=== PATIENT | female | born 1980 | race Caucasian/White ===

== ENCOUNTER → 2017-07-28 12:59 | Outpatient (CLI) | payer OTHER, SELFPAY ==
--- NOTE | 2017-07-28 13:20 | US_ITS ---
US OB /maternal detail: INDICATION: ITS.REASON: OB Complete ORDERING PHYSICIAN: Sterling Ackerman MD PATIENT AGE: 37 years TECHNIQUE: ultrasound transabdominal scanning. COMPARISON: Previous ultrasound 05/23/2017. FINDINGS: Single viable intrauterine gestation. Cephalic position in the study.. Fetus turned toward the cephalic position during the course of the scan Placenta: Posterior placenta grade 1.. No previa The cervix appears satisfactory. Closed and measuring over 3 cm in length. Complete survey performed and was unremarkable on the submitted images as in PACS. No discrete anomalies identified on survey imaging by technologist. Active fetus. Three-vessel cord with satisfactory umbilical cord insertion. 4- chamber heart noted. LVOT imaged & cine loop of heart included Survey of brain & ventricles and posterior fossa unremarkable. Face and neck survey unremarkable. Survey of the nasion and orbits unremarkable Diaphragm and chest views unremarkable. Abdomen: Both kidneys noted and unremarkable. Small Bladder imaged Stomach noted and satisfactory. Spine: Survey of the spine satisfactory with no anomalies identified nor imaged. Both arms and legs noted. Appears to be a male fetus Amniotic Fluid: Adequate. Maternal adnexa: No additional findings here encountered Measurements: Average ultrasound age 20 week 1 day. Gestational Age 19 wk 6 day... Based on LMP 03/11/17 Estimated due date by ultrasound age 612/14/2017 Estimated weight 3 19-g +/- 47 grams. BPD = 20 week 3 day OFD = 20 week 6 day HC = 19 week 6 day AC = 19 week 4 day FL = 20 week 2 day Heart Rate = 140 BPM Cerebellum = 20 week 1 day Humerus = 19 week 6 day HC/AC is 1.22 WNL. CI is 77% WNL. FL/BPD is 69%. FL/AC is 23%. IMPRESSION: Single viable intrauterine gestation. Average ultrasound age 20 weeks 1 day. Cephalic position at the end of the study.-Turned during the exam. Posterior placenta no previa. Fetus is active. Anatomical survey unremarkable, normal anatomy observed.
== END ==
LOC: RAD 12:59
PROVIDERS: Family Provider Family Medicine; PCP Family Medicine; Visit Provider Nurse Practitioner Obstetrics & Gynecology
DX: Z36.0 Encounter for antenatal screening for chromosomal anomalies (principal)
CPT/HCPCS: 76811

== ENCOUNTER 2017-08-19 17:13 | Outpatient (CLI) | payer OTHER, SELFPAY ==
--- NOTE | 2017-08-19 | US_ITS ---
US OB >= 14 weeks Fetus, US OB transvaginal: INDICATION: bright red Spotting with cramping pain ITS.REASON: CHECK FOR PLACENTA PREVIA ORDERING PHYSICIAN: Bruce Gonsalez MD PATIENT AGE: 37 years TECHNIQUE: ultrasound transabdominal and transvaginal scanning. FINDINGS: There is a single live fetus present in the cephalic presentation. The placenta is posterior in implantation with an anterior accessory lobe. heart tones are present at 1 32 bpm. Transvaginal images show no evidence of placenta previa. The cervix is closed measuring 3 cm. Biometric measurements were not obtained.. IMPRESSION: Live IUP in cephalic presentation. No evidence of placenta previa
[2017-08-19 17:47] VITALS: BP 127/75; PULSE 77; RESP 16; TEMP 36.7; O2SAT 99; BMI 40.1
[2017-08-19 18:05] LABS: Microscopic, Urine URINE MICROSCOPIC (MICROSCOPIC)
[2017-08-19 18:10] LABS: Appearance,Urine CLEAR (Clear); Bilirubin,Urine Negative (Negative); Blood, Urine Negative (Negative); Color,Urine YELLOW (Yellow); Glucose,Urine (UA) Negative (Negative); Ketones,Urine Negative (Negative); Leukocyte Esterase,Urine Negative (Negative); Nitrate,Urine Negative (Negative); Protein,Urine Negative (Negative); Urobilinogen,Urine 0.2 EU/dl (0.2)
[2017-08-19 19:07] LABS: Bacteria,Urine 1+ /lpf; RBC,Urine Occasional #/hpf (0-3); WBC,Urine Occasional #/hpf (0-3)
== END 2017-08-19 19:16 | disposition home or self-care (01) ==
LOC: OBOUT 17:18 → OB 17:20
PROVIDERS: PCP Nurse Practitioner Obstetrics & Gynecology; Visit Provider Obstetrics & Gynecology
DX: O26.852 Spotting complicating pregnancy, second trimester (principal); Z3A.23 23 weeks gestation of pregnancy
CPT/HCPCS: 59025; 76805; 76830; 81001

== ENCOUNTER → 2017-11-18 18:35 | Outpatient (REF) | payer OTHER, SELFPAY | LOC: LAB 18:35 | PROVIDERS: Visit Provider Nurse Practitioner Obstetrics & Gynecology | DX: Z34.90 Encounter for supervision of normal pregnancy, unspecified, unspecified trimester (principal) | CPT/HCPCS: 86403 ==

== ENCOUNTER 2017-11-21 03:56 | Outpatient (CLI) | payer OTHER, SELFPAY ==
--- NOTE | 2017-11-21 | US_ITS ---
US OB biophysical profile, US OB follow up, US SD Ratio umbilcal artery: Indication: ITS.REASON: 36 3/7 week labor. Contractions. ORDERING PHYSICIAN: Bruce Gonsalez MD PATIENT AGE: 37 years FINDINGS:. Single viable intrauterine gestation. Cephalic position.. Placenta: Posterior lateral extending to the fundus. No previa. Some early basal calcifications. 1. There is average amount fluid. The cervix appears satisfactory. Closed and measuring~ 3 cm in length. But becoming difficult to visualize with low-lying head Complete survey performed and was unremarkable on the submitted images as in PACS. No discrete anomalies identified on survey imaging by technologist. Active fetus.Three-vessel cord with satisfactory umbilical cord insertion. Survey of brain & ventricles. In posterior fossa unremarkable Face and neck survey unremarkable. Nasion intact Diaphragm and chest views unremarkable. 4- chamber heart imaged. Cine loop included. LVOT imaged Abdomen: Both kidneys noted and unremarkable. Stomach noted and satisfactory. Spine: Survey of the spine satisfactory with no anomalies identified nor imaged. Both arms and legs noted. Amniotic Fluid: Adequate. Maternal adnexa: No significant findings encountered. MEASUREMENTS: AVERAGE ULTRASOUND AGE = 37w1d. Estimated due date by ultrasound is Due 12/11/2017. Estimated weight is 2979g ( Gestational age 36 weeks 3 days based on LMP 03/11/2017) BPD: 38w1d OFD: 11.58 cm HC: 37w5d AC: 36w4d FL: 35w6d heart rate: 142 bpm. HC/AC: 1.02 (0.93-1.11) Cephalic index: 81% (70-86%) FL/BPD: 75% (71-87%) FL/AC: F21%(20-24%)C Amniotic fluid index: AFIi equal 11.66 . The largest pocket MO fluid measuring 4.2 cm at the right lower quadrant BIOPHYSICAL PROFILE breathing and movement clearly evident. 8 of possible 8 points with scoring as follows: Qualitative AFV: 2 breathing movements: 2 Gross body movements: 2 Tone: 2 Biophysical profile score: 8/8 Doppler evaluation of the umbilical artery: SD RATIO: 2.3 Resistive index: 0.56 No obvious anomalies evident. Placenta: LAT Posterior extending to the fundus Cervix: Appears closed and measures Measurement 3 cm ----IMPRESSION:------- Single viable intrauterine gestation in cephalic presentation. Average ultrasound age 37 weeks 1 day ... Anatomical survey of unremarkable & WNL . Placenta posterior lateral extends to the fundus. Biophysical profile = 8 of possible 8 points ENEIDA = 11.66 SD ratio = 2.3.
[2017-11-21 04:12] VITALS: BMI 39.6
[2017-11-21 04:14] VITALS: BP 108/68; PULSE 77; RESP 20; TEMP 36.7; O2SAT 97; BMI 39.6
[2017-11-21 04:57] LABS: Microscopic, Urine URINE MICROSCOPIC (MICROSCOPIC)
[2017-11-21 05:07] LABS: Appearance,Urine CLEAR (Clear); Bilirubin,Urine Negative (Negative); Blood, Urine Negative (Negative); Color,Urine YELLOW (Yellow); Glucose,Urine (UA) Negative (Negative); Ketones,Urine Negative (Negative); Leukocyte Esterase,Urine Negative (Negative); Nitrate,Urine Negative (Negative); Protein,Urine Negative (Negative); Urobilinogen,Urine 0.2 EU/dl (0.2)
[2017-11-21 05:21] LABS: Bacteria,Urine 1+ /lpf; RBC,Urine Occasional #/hpf (0-3)
== END 2017-11-21 09:25 | disposition hospice, home (50) ==
LOC: OBOUT 03:59 → OB 04:05
PROVIDERS: PCP Nurse Practitioner Obstetrics & Gynecology; Visit Provider Obstetrics & Gynecology
DX: O60.03 Preterm labor without delivery, third trimester (principal); Z3A.36 36 weeks gestation of pregnancy
CPT/HCPCS: 59025; 76816; 76819; 76820; 81001; 96360; 96372

== ENCOUNTER 2017-11-22 12:29 | Outpatient (CLI) | payer OTHER, SELFPAY ==
[2017-11-22 12:45] VITALS: BMI 40.0
[2017-11-22 12:56] LABS: Microscopic, Urine URINE MICROSCOPIC (MICROSCOPIC)
[2017-11-22 12:57] LABS: Appearance,Urine CLEAR (Clear); Bilirubin,Urine Negative (Negative); Blood, Urine Negative (Negative); Color,Urine YELLOW (Yellow); Glucose,Urine (UA) Negative (Negative); Ketones,Urine Negative (Negative); Leukocyte Esterase,Urine Negative (Negative); Nitrate,Urine Negative (Negative); PH,Urine 6.5 (5.0-8.5); Protein,Urine Negative (Negative); Specific Gravity, Urine <= 1.005 (1.005-1.030); Urobilinogen,Urine 0.2 EU/dl (0.2)
[2017-11-22 13:01] VITALS: BP 120/72; PULSE 82; RESP 20; TEMP 36.6; O2SAT 97; BMI 40.0
[2017-11-22 13:08] LABS: Bacteria,Urine 2+ /lpf; WBC,Urine Occasional #/hpf (0-3)
--- NOTE | 2017-11-22 15:12 | HMH.ACPN2 ---
Internal Medicine - PN: Subj *Date: 11/22/17 *Time: 15:12 Interval history: She is a 37-year-old 2 para 1 who is 36 and 4 weeks gestational age. She came in with occasional contractions. She said today they were hurting more than they had yesterday when she was here. She also feels discomfort along her previous incision whenever she gets up and moves around. She denies any vaginal bleeding. Exam Vital signs and Labs for Last 24 Hours: Temp Pulse Resp BP Pulse Ox 98 F 82 20 120/72 97 11/22/17 13:01 11/22/17 13:01 11/22/17 13:01 11/22/17 13:01 11/22/17 13:01 Laboratory Results - last 24 hr 11/22/17 12:45: Urine Color Yellow, Urine Appearance Clear, Urine pH 6.5, Ur Specific [place] <= 1.005, Urine Protein Negative, Urine Glucose (UA) Negative, Urine Ketones Negative, Urine Blood Negative, Urine Nitrate Negative, Urine Bilirubin Negative, Urine Urobilinogen 0.2, Ur Leukocyte Esterase Negative, Urine WBC Occasional, Ur Squamous Epith Cells 3-5, Urine Bacteria 2+ I & O for Last 24 hours: Intake & Output 11/20/17 11/21/17 11/22/17 11/23/17 11:59 11:59 11:59 11:59 Weight 233 lb 4 oz - Constitutional no acute distress - *Routine Abdominal Exam Present: soft (She is nontender along the scar.) Assessment and Plan (1) False labor before 37 completed weeks of gestation Current visit: Yes Status: Acute Category: Medical Code(s): O47.00 - False labor before 37 completed weeks of gestation, unspecified trimester - Assessment and plan all Dx Assessment and Plan for all problems:: She was having a few contractions on arrival about every 4-6 minutes. We did give her some fluids as well as subcutaneous Brethine. This seemed to settle her. Her cervix has not changed and remains 2 cm externally and closed internally. The presenting part is still quite high. She has an appointment with me in 48 hours.
== END 2017-11-22 15:25 | disposition home or self-care (01) ==
LOC: OBOUT 12:31 → OB 12:33
PROVIDERS: PCP Nurse Practitioner Obstetrics & Gynecology; Visit Provider Nurse Practitioner Obstetrics & Gynecology
DX: O47.03 False labor before 37 completed weeks of gestation, third trimester (principal); Z3A.36 36 weeks gestation of pregnancy
CPT/HCPCS: 59025; 81001; 87086; 96360; 96372

== ENCOUNTER 2017-11-24 14:58 | Inpatient (IN) ==
[2017-11-24 20:09] LABS: Basophils % 0.1 % (0.1-2.0); Eosinophils % 0.3 % (0.1-12.0); Hematocrit 33.9 % (37.0-47.0); Hemoglobin 11.7 g/dL (12.2-16.2); Lymphocytes # 1.4 K/mm3 (0.7-4.5); Lymphocytes % 19.9 K/mm3 (10-50); Mean Corpuscular HGB Conc 34.6 g/dL (31.8-35.4); Mean Corpuscular Hemoglobin 31.7 pg (27.0-31.2); Mean Corpuscular Volume 91.5 fl (81-99); Mean Platelet Volume 10.5 fl (7.4-10.4); Monocytes # 0.3 K/mm3 (0.1-1.0); Monocytes % 4.9 % (1.7-9.3); Neutrophils # 5.2 K/mm3 (1.8-7.8); Neutrophils % 74.9 % (37.0-80.0); Platelet Count 139 K/mm3 (142-424); Red Blood Count 3.71 M/mm3 (4.20-5.40); Red Cell Distribution Width 14.7 % (11.5-17.5); White Blood Count 6.9 K/mm3 (4.8-10.8)
[2017-11-24 20:21] LABS: Albumin Level 2.2 gm/dL (3.4-5.0); Albumin/Globulin Ratio 0.6 (1.1-1.8); Anion Gap 14.1 mEq/L (5-15); Bilirubin,Total 0.4 mg/dL (0.2-1.0); Calcium 8.9 mg/dL (8.5-10.1); Globulin 3.6 gm/dl (1.3-3.2); Potassium 3.1 mmoL/L (3.5-5.1); Total Protein,Serum 5.8 gm/dL (6.4-8.2)
[2017-11-24 21:02] LABS: Microscopic, Urine URINE MICROSCOPIC (MICROSCOPIC)
[2017-11-24 21:05] LABS: Appearance,Urine CLEAR (Clear); Bilirubin,Urine Negative (Negative); Blood, Urine Negative (Negative); Color,Urine YELLOW (Yellow); Glucose,Urine (UA) Negative (Negative); Ketones,Urine 1+ (Negative); Leukocyte Esterase,Urine Negative (Negative); Protein,Urine Negative (Negative); Specific Gravity, Urine 1.015 (1.005-1.030); Urobilinogen,Urine 0.2 EU/dl (0.2)
[2017-11-24 21:16] LABS: Bacteria,Urine 1+ /lpf
--- NOTE | 2017-11-25 08:02 | History & Physical Report ---
OB - H&P: HPI Antepartum - History of Present Illness Chief complaint: Contractions, labor History of present illness: She is a 37-year-old 2 para 1 who is 37 weeks gestational age. She has had a number of episodes of labor and complains of severe pain along her incision. She has had a previous section. She has received fluids and Brethine. We are admitting her overnight for observation. - History of Present Criteria for establishing EDC:: LMP confirmed by 1st trimester US care: good care Ultrasounds: normal 1st trimester US, normal mid trimester US Obstetrical complications: labor Medical complications: none [facility] History I have reviewed the patient's past medical history: Yes Medical History: Denies:: Anxiety, Asthma, Depression, Diabetes Mellitus Type 1, Diabetes Mellitus Type 2, Seizures Other Surgeries: Yes: Appendectomy. 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: 1 Review of Systems - Review of Systems Review of systems:: pertinent systems reviewed and negative unless documented below Meds Home Medications Medication Instructions Recorded Confirmed Type 1 tab PO QDAY 07/04/17 11/24/17 History vitamin,calcium,rflouvqs-xbqx-loxwx acid tablet Allergies Allergy/AdvReac Type Severity Reaction Status Date / Time sulfamethoxazole Allergy Mild NAUSEA/HEAD Verified 11/04/17 14:34 [From ] ACHE trimethoprim [From ] Allergy Mild NAUSEA/HEAD Verified 11/04/17 14:34 ACHE OB - H&P: Exam - Physical Exam Vital signs: Temp Pulse Resp BP Pulse Ox 98.3 F 70 18 108/62 97 11/25/17 04:00 11/25/17 04:00 11/25/17 04:00 11/25/17 04:00 11/24/17 15:17 - Constitutional no acute distress - Routine HEENT Exam Head: Present: normocephalic - Routine Neck Exam Present: supple, full ROM - Routine Cardiovascular Exam Present: RRR - Routine Abdominal Exam Present: soft, tenderness (She has tenderness along her incision.) - Routine Skin Exam Present: intact OB - Results - Labs Labs: Short CBC 11/24/17 Range/Units 20:01 WBC 6.9 (4.8-10.8) K/mm3 Hgb 11.7 L (12.2-16.2) g/dL Hct 33.9 L (37.0-47.0) % Plt Count 139 L (142-424) K/mm3 BMP 11/24/17 20:01 Sodium 137 Potassium 3.1 L Chloride 105 Carbon Dioxide 21 BUN 7 Creatinine 0.49 L Glucose 162 H Calcium 8.9 Liver Function 11/24/17 Range/Units 20:01 Total Bilirubin 0.4 (0.2-1.0) mg/dL AST 16 (15-37) U/L ALT 15 (12-78) U/L Alkaline Phosphatase 100 (46-116) U/L Albumin 2.2 L (3.4-5.0) gm/dL Urine 11/24/17 Range/Units 15:07 Urine Color Yellow (Yellow) Urine Appearance Clear (Clear) Urine pH 6.0 (5.0-8.5) Ur Specific [place] 1.015 (1.005-1.030) Urine Protein Negative (Negative) Urine Glucose (UA) Negative (Negative) OB - A/P Antepartum (1) labor in third trimester Current visit: Yes Status: Acute - Additional Plan Planning to breastfeed?: Yes Plan: expectant management (She will be observed overnight.)
--- NOTE | 2017-11-25 08:04 | Progress Note ---
Internal Medicine - PN: Subj *Date: 11/25/17 *Time: 08:02 Interval history: She was admitted last night with labor. She was having regular contractions and severe pain along her incision. She has received IV fluids as well as subcutaneous Brethine. Despite this she continues to have contractions this morning. She continues to complain of pain along her incision. She is 37 weeks today. Exam Vital signs and Labs for Last 24 Hours: Temp Pulse Resp BP Pulse Ox 98.3 F 70 18 108/62 97 11/25/17 04:00 11/25/17 04:00 11/25/17 04:00 11/25/17 04:00 11/24/17 15:17 Laboratory Results - last 24 hr 11/24/17 15:07: Urine Color Yellow, Urine Appearance Clear, Urine pH 6.0, Ur Specific [place] 1.015, Urine Protein Negative, Urine Glucose (UA) Negative, Urine Ketones 1+, Urine Blood Negative, Urine Nitrate Negative, Urine Bilirubin Negative, Urine Urobilinogen 0.2, Ur Leukocyte Esterase Negative, Urine WBC 3-5 , Ur Squamous Epith Cells 3-5, Urine Bacteria 1+ 11/24/17 20:01: WBC 6.9, RBC 3.71 L, Hgb 11.7 L, Hct 33.9 L, MCV 91.5, MCH 31.7 H, MCHC 34.6, RDW 14.7, Plt Count 139 L, MPV 10.5 H, Neut % (Auto) 74.9, Lymph % (Auto) 19.9, Boyd % (Auto) 4.9, Eos % (Auto) 0.3, Baso % (Auto) 0.1, Neut # ( Auto) 5.2, Lymph # (Auto) 1.4, Boyd # (Auto) 0.3, Eos # (Auto) 0.0, Baso # (Auto ) 0.0 11/24/17 20:01: Sodium 137, Potassium 3.1 L, Chloride 105, Carbon Dioxide 21, Anion Gap 14.1, BUN 7, Creatinine 0.49 L, Estimated Creat Clear 264, Estimated GFR 144, Est GFR ( Amer) 174, Glucose 162 H, Calcium 8.9, Total Bilirubin 0.4, AST 16, ALT 15, Alkaline Phosphatase 100, Total Protein 5.8 L, Albumin 2.2 L, Globulin 3.6 H, Albumin/Globulin Ratio 0.6 L 11/25/17 03:57: POC Glucose 101 11/25/17 05:31: Blood Type A Positive, Antibody Screen Negative I & O for Last 24 hours: Intake & Output 11/22/17 11/23/17 11/24/17 11/25/17 11:59 11:59 11:59 11:59 Intake Total 527 / 527 Balance 527 / 527 Weight 230 lb - Constitutional no acute distress Assessment and Plan (1) labor in third trimester Current visit: Yes Status: Acute Category: Medical Code(s): O60.03 - labor without delivery, third trimester (2) False labor at or after 37 completed weeks of gestation Current visit: Yes Status: Acute Category: Medical Code(s): O47.1 - False labor at or after 37 completed weeks of gestation - Assessment and plan all Dx Assessment and Plan for all problems:: She continues to have pain as well as runs of contractions. Her cervix is 2/ dilated which is changed overnight is very soft. The is still quite high. Given the fact that she continues to have severe pain as well as regular infections. We will go ahead with a repeat section and bilateral salpingectomy.Today. I discussed the risks of surgery that includes bleeding, infection, injuries to the bowel and bladder. We discussed the rare risk of DVT. We discussed the irreversibility of bilateral salpingectomy. All questions were answered and consents were signed.
--- NOTE | 2017-11-25 11:07 | Progress Note ---
[facility] Anesthesia Checklist - Patient Identification Patient Identification: Arm Band, Verbal (Name & ) - Structural Data Admitted From: Inpatient Consent for Planned Operative Procedure(s) Verified: Yes Verified Documents: Surgical Consent, History and Physical - NPO Status Verified Time NPO: 00:00 - Additional verifications Patient : Yes Anesthesia Reactions: No - Airway Assessment C-Spine Mobility Assessed: Yes TMJ Mobility Assessed: Yes Dentition: Good Dentition - Neurological Assessment Level of Consciousness: Awake Hx Seizures: No Numbness or tingling in extremities: No - Anesthesia Plan Anesthesia Risk discussed: Yes Anesthesia Plan: Verified ASA Class: II Anesthesia Type: Spinal [facility] Anesthesia HX I have reviewed the patient's past medical history: Yes Medical History: Denies:: Anxiety, Asthma, Depression, Diabetes Mellitus Type 1, Diabetes Mellitus Type 2, Seizures Other Surgeries: Yes: Appendectomy. No: Amputation: No Fractures: No *Family Hx:: No significant family history
--- NOTE | 2017-11-25 13:05 | Operative Note ---
Date of procedure: 11/25/17 Pre-op Diagnosis:: Term , previous section, labor, desire for sterilization Post-op Diagnosis:: Term , labor, desire for sterilization, pelvic peritoneal adhesions. Procedure performed:: Repeat lower segment transverse section, bilateral salpingectomy, lysis of adhesions Surgeon:: Sterling Ackerman MD Licensed Funeral Director And Embalmer(s):: Sue Nunez FELT CARBONIZER:: Other (Walter tian) Anesthesia: spinal Estimated blood loss (mL): 600 Clinical Note:: She is a 37-year-old 2 para 1 who is 37 weeks gestational age. She has been admitted and observed a number of times with labor. She was admitted overnight and continued to have regular contractions. Her cervix changed from 1 cm. As result of that we elected to perform a repeat lower segment transverse section. She also expresses desire for a bilateral salpingectomy. Risks and benefits of surgery discussed the patient prior to surgery. Operative findings:: She delivered a liveborn male child at 12:15 PM in the afternoon of November 25, 2017. The baby's Apgars are currently unavailable. The pH was 7.44. There was a band of tissue from her left ovary crossing over the anterior aspect of the uterus to the right adnexa. It was quite thick. The rest the pelvis appeared normal. The ovaries otherwise appeared normal. The tubes appeared normal. Operative note:: She was taken to the operating room where epidural anesthesia was found be adequate. She was prepped and draped in normal sterile fashion in the supine position with a leftward tilt. A [place] catheter was in the bladder. A Pfannenstiel skin incision was made with knife then carried through to the underlying layer of fascia with cautery. The fascia was opened in the midline with cautery and extended laterally using Roblero scissors. [place] clamps were applied to the superior aspect of the fascial incision which was tented up and the underlying rectus muscles dissected off using cautery. The Venkatesh clamps were then applied to the inferior aspect of the fascial incision which in a similar fashion was tented up and the underlying rectus muscles dissected off using cautery. The rectus muscles were then in the midline, the peritoneum identified, and entered sharply with Metzenbaum scissors. This incision was then extended superiorly and inferiorly with cautery. We had good visualization of the bladder inferiorly. The bladder peritoneum was then opened in the midline and extended laterally using Metzenbaum scissors. A bladder flap was created digitally. The lower blade of the [place] was inserted so as to push the bladder out of the way. Transverse incision was made through the uterine muscle to the amnion. This incision was then extended laterally using fingers traction. The amnion was entered sharply with knife. The infant's head was then delivered atraumatically. This was followed by the anterior shoulder and the rest of the 's body atraumatically. The oropharynx and nasopharynx were bulb suctioned. The baby cried spontaneously. The was then handed off to Dr. Katz. We then obtained cord blood as well as cord pH. The pH was 7.44. Approximately 3 minutes after baby had respiratory faculties and required bag and mask. Using gentle traction on the cord and countertraction on the fundus I was able to easily deliver the placenta intact. It had a normal three-vessel cord. The uterus was then cleared of clots and debris and exteriorized from the abdominal cavity. The uterine incision was then closed using running 0 Vicryl suture in a locked fashion. A second layer of the same suture was used to imbricate the first layer. The bladder peritoneum was then closed using running 2-0 Vicryl suture in a locked fashion. There was a band of tissue from the left ovary that had been originally across the anterior edge of the uterus and attaching to the right adnexa. We were able to free this up with both sharp and blunt dissection. We then removed a small piece of this tissue and it appeared to be mostly the ovary that had been stretched completely over to the opposite side. We then grasped the right tube and starting from its distal and using cautery along the mesosalpinx we cauterized all along the mesosalpinx. The tube was then cauterized at its proximal and leaving a small nubbin of tube. This was similar performed of the patient's left side. Both tubes were sent to pathology. There was a small amount of bleeding along the left tube and I grasped this with Bita clamps and suture ligated this area. The gutters and cul-de-sac were then cleared of clots and debris and the uterus was returned the abdominal cavity. Once again hemostasis was assured. I elected to place a large piece of Surgicel on the right side of the uterus. I wrapped the left ovary in Interceed. The peritoneum was grasped with Bita clamps and closed using running 2-0 Vicryl suture. The rectus muscles were then reapproximated using running 0 Vicryl suture. The fascia was closed using running #1 Vicryl suture. The subcutaneous tissues were then irrigated with warm water followed by closure Katie's fascia using running 2-0 Monocryl suture. The skin was closed with laxmi. The incision was then cleaned with Hibiclens. Sterile dressings were applied. She tolerated the procedure well and was taken to the recovery room in excellent condition. All sponges minute and needle counts were correct. Estimate a blood loss was approximately 600 mL. Condition: stable Disposition: PACU Specimens:: Fallopian tubes bilaterally Complications:: None
--- NOTE | 2017-11-25 13:10 | Progress Note ---
[facility] Anesthesia Record Part II Discharge Time: 13:35 Destination: Obstetric PACU nurse assessment reviewed?: Yes Patient Condition:: Good Anesthesia Complications:: None
--- NOTE | 2017-11-25 13:10 | Progress Note ---
[facility] Anesthesia Record Part I Intake, IV Amount: 1,300 Estimated blood loss (mL): 600 Urine output (mL): 250 Blood Products used (#): none Blood Pressure: 94/56 SaO2: 100 Pulse Rate: 63 Respiratory Rate: 18 Temperature: 97.8 F Patient is:: Awake, Stable Stable to PACU at:: 13:05
[2017-11-25 13:24] LABS: VBG Base Excess -6.8 mmol/L (-2.4-2.3); VBG HCO3 19.8 mmol/L (23-30); VBG Oxygen Saturation 99.7 % (50-70); VBG PCO2 42.4 mmol/L (35-51); VBG PH 7.29 mmol/L (7.31-7.41); VBG PO2 148.4 mmol/L (28-40); VBG Total CO2 21.1 mmol/L (23-27)
--- NOTE | 2017-11-25 16:22 | Pharmacy Consult Notes ---
[facility] Pharmacy VTE Monitoring - Patient Demographics Admission date: 11/25/17 Report Date: 11/25/17 Time: 16:21 Allergies/Adverse Reactions: Patient Allergies sulfamethoxazole [From ] Allergy (Mild, Verified 11/04/17 14:34) NAUSEA/HEADACHE trimethoprim [From ] Allergy (Mild, Verified 11/04/17 14:34) NAUSEA/HEADACHE Height: 1.63 m Weight: 104.326 kg Patient Problems: Current Active Problems labor in third trimester (Acute) False labor after 37 weeks of gestation without delivery (Acute) False labor at or after 37 completed weeks of gestation (Acute) - VTE Risk Labs: VTE Related Lab Results Hgb 11.7 g/dL (12.2-16.2) L 11/24/17 20:01 Hct 33.9 % (37.0-47.0) L 11/24/17 20:01 Plt Count 139 K/mm3 (142-424) L 11/24/17 20:01 BUN 7 mg/dL (7-18) 11/24/17 20:01 Creatinine 0.49 mg/dL (0.55-1.02) L 11/24/17 20:01 Estimated Creat Clear 264 mL/min (0-300) 11/24/17 20:01 Clinical Trial Participant: No - Prophylaxis VTE Prophylaxis Ordered?: Yes Types of VTE Prophylaxis: IPCS Knee High (POSTOP)
[2017-11-26 07:50] LABS: Basophils % 0.2 % (0.1-2.0); Eosinophils # 0.1 K/mm3 (0.0-0.4); Eosinophils % 0.7 % (0.1-12.0); Hematocrit 34.9 % (37.0-47.0); Hemoglobin 11.7 g/dL (12.2-16.2); Lymphocytes # 1.6 K/mm3 (0.7-4.5); Lymphocytes % 20.1 K/mm3 (10-50); Mean Corpuscular HGB Conc 33.4 g/dL (31.8-35.4); Mean Corpuscular Hemoglobin 31.4 pg (27.0-31.2); Mean Corpuscular Volume 93.9 fl (81-99); Mean Platelet Volume 10.9 fl (7.4-10.4); Monocytes # 0.5 K/mm3 (0.1-1.0); Monocytes % 6.2 % (1.7-9.3); Neutrophils # 5.9 K/mm3 (1.8-7.8); Neutrophils % 72.8 % (37.0-80.0); Platelet Count 143 K/mm3 (142-424); Red Blood Count 3.72 M/mm3 (4.20-5.40); Red Cell Distribution Width 14.8 % (11.5-17.5); White Blood Count 8.2 K/mm3 (4.8-10.8)
--- NOTE | 2017-11-26 09:14 | Discharge Summary ---
General - General Admission date:: 11/24/17 Discharge date: 11/26/17 HPI HPI: She is a 37-year-old 2 now para 2 who is 37 weeks gestational age. She was admitted overnight with contractions and pain. The pain was along her incision. Overnight she continued to have contractions about every 4 minutes since she change her cervix from 1-2 cm. We had tried Brethine as well as IV fluids and she continued to contract despite this. She has had a previous section was scheduled for repeat section. She also expressed desire for sterilization. Hospital Course Hospital Course: On November 25, 2017 she underwent a repeat lower segment transverse section and bilateral salpingectomy. The she delivered a liveborn male child weighing 6 lbs. 5 oz. and he was 18 and three-quarter inches long. He had Apgars of 8 at 1 minute and 1 at 5 minutes. It is not clear why his Apgars went down and he stopped breathing. He was however successfully resuscitated and was transferred to [facility]. We are transferring Greg this morning as a compassionate care transfer to so she can be near her baby. She has done well post operatively and has remained afebrile throughout her hospitalization. She is eating and drinking and ambulating. Her [place] catheter is out and she is voiding. Her pain is reasonably well controlled. She had a blood, she is rubella immune and was group B streptococcus negative. She would like to breast-feed. Her graft she will be discharged today to the care of Dr. Bryce Navarro at the [facility]. Objective Vital signs: Temp Pulse Resp BP Pulse Ox 97.9 F 65 18 91/54 99 11/25/17 20:20 11/25/17 20:20 11/25/17 20:20 11/25/17 20:20 11/25/17 20:20 - *Routine HEENT Exam Head: Present: normocephalic - *Routine Neck Exam Present: supple - *Routine Abdominal Exam Present: soft Results Labs on day of discharge: Labs from last 24 hours 11/26/17 11/25/17 11/25/17 05:40 13:20 12:25 WBC 8.2 RBC 3.72 L Hgb 11.7 L Hct 34.9 L MCV 93.9 MCH 31.4 H MCHC 33.4 RDW 14.8 Plt Count 143 MPV 10.9 H Neut % (Auto) 72.8 Lymph % (Auto) 20.1 [place] % (Auto) 6.2 Eos % (Auto) 0.7 Baso % (Auto) 0.2 Neut # (Auto) 5.9 Lymph # (Auto) 1.6 [place] # (Auto) 0.5 Eos # (Auto) 0.1 Baso # (Auto) 0.0 VBG pH 7.29 L VBG pCO2 42.4 VBG pO2 148.4 H VBG HCO3 19.8 L VBG Total CO2 21.1 L VBG O2 Saturation 99.7 H VBG Base Excess -6.8 L Cord ABG pH 7.44 Urine Color Urine Appearance Urine pH Ur Specific [place] Urine Protein Urine Glucose (UA) Urine Ketones Urine Blood Urine Nitrate Urine Bilirubin Urine Urobilinogen Ur Leukocyte Esterase Urine RBC Urine WBC Ur Squamous Epith Cells Urine Bacteria 11/25/17 12:03 WBC RBC Hgb Hct MCV MCH MCHC RDW Plt Count MPV Neut % (Auto) Lymph % (Auto) [place] % (Auto) Eos % (Auto) Baso % (Auto) Neut # (Auto) Lymph # (Auto) [place] # (Auto) Eos # (Auto) Baso # (Auto) VBG pH VBG pCO2 VBG pO2 VBG HCO3 VBG Total CO2 VBG O2 Saturation VBG Base Excess Cord ABG pH Urine Color Yellow Urine Appearance Clear Urine pH 6.0 Ur Specific [place] <= 1.005 Urine Protein Negative Urine Glucose (UA) Negative Urine Ketones Trace Urine Blood Negative Urine Nitrate Negative Urine Bilirubin Negative Urine Urobilinogen 0.2 Ur Leukocyte Esterase Negative Urine RBC Occasional Urine WBC Occasional Ur Squamous Epith Cells 5-10 Urine Bacteria Trace DS: Diagnosis - Discharge Diagnosis (1) labor in third trimester Status: Acute (2) False labor at or after 37 completed weeks of gestation Status: Acute (3) Sterilization Status: Acute Discharge Plan - Patient Discharge Instructions ACTIVITY: No heavy lifting DIET: continue same diet - Follow up Plan Disposition: Xfer Short-Term Hosp Home Medications: Home Medications Medication Instructions Recorded Confirmed Type 1 tab PO DAILY 07/04/17 11/25/17 History vitamin,calcium,fojtyhct-tnvf-ogdur acid tablet Prescriptions/Medication Reconciliation: Continue vitamin,calcium,bgmvjeif-zpdd-iznjt acid tablet 1 tab PO DAILY
== END 2017-11-26 11:30 | disposition short-term general hospital (02) ==
LOC: OBOUT 14:58 → OB 14:58 → OBSVTOIN 17:42
PROVIDERS: ADMIT Nurse Practitioner Obstetrics & Gynecology; ATTEND Nurse Practitioner Obstetrics & Gynecology

== ENCOUNTER 2019-03-30 09:00 | Outpatient (RCR) | payer OTHER, SELFPAY ==
--- NOTE | 2019-02-19 14:33 | HMH.PTOPEV ---
PT Outpatient Evaluation Rehab PT Outpatient Evaluation Start: 02/19/19 14:15 Freq: Status: Active Protocol: Document 02/19/19 14:15 ALICIA (Rec: 02/19/19 14:33 ALICIA [id number]) Electronically Signed By Montrell Loya, PT 02/19/19 14:15 Outpatient Therapy Subjective History Subjective History Patient is a 38 year old female presenting to outpatient PT with reports of acute low back pain starting 6 days ago of insidious onset. Pt reports on day of initial pain [place] and performing some bending and lifting activities . She reports intermittent BLE radicular symptoms L>R increased with bending activity. Pt visited ER where CT scan indicated lumbar disc herniation. No report available to elaborate currently. Special tests indicate L 4/5 L5/S1 dermatomal distribution and R ant/L post rotation of the innominant. No significant myotomal asymmetries. No DTR asymmetries noted today. Comorbidities inculde hx of B knee pain and elevated BMI. Chief Complaint Pain,Stiff,Paresthesia Symptom Type Ache,Tingling Symptoms Relieved By Rest/Positioning Symptoms Aggravated By Bending/Stooping,Walking, Lifting Prior Functional Limitations None Current Functional Limitations Lifting,Housework,Driving, Standing,Sitting,Squatting, Recreation Activity,Walking, Bending/Stooping Symptom Description Constant but Variable Level of pain today (0-10) 5 Pain scale - at its best (0-10) 2 Pain scale - at its worst (0-10) 9 Lumbopelvic Eval Posture Thoracic Spine Posture Standing Position Increased Kyphosis Lumbar Spine Posture Standing Position Increased Lordosis Assistive device Assistive Devices None / NA Gait Observation General Gait Pattern Observation No Deviations/Normal Palapation tenderness left buttock tenderness Yes: 3/4 Lumbar/Sacral Palpation Findings Tenderness Lumbar/Sacral Palpation Overall Comment L PSIS Accessory Movement L4 bilateral L5
== END 2019-03-30 09:05 | disposition home or self-care (01) ==
LOC: PT 09:00
PROVIDERS: Visit Provider Family Medicine
DX: M51.26 Other intervertebral disc displacement, lumbar region (principal)
CPT/HCPCS: 97010; 97012; 97014; 97033; 97035; 97110; 97140; 97163; G0283

== ENCOUNTER 2020-07-16 10:08 | Emergency (ER) | payer OTHER, SELFPAY ==
[2020-07-16 10:25] VITALS: BP 148/86; PULSE 75; RESP 17; TEMP 36.3; O2SAT 98; BMI 38.0
--- NOTE | 2020-07-16 10:45 | HMH.EDUTC ---
[facility] [place] Disposition Clinical Impression: Encounter for laboratory testing for COVID-19 virus, Viral syndrome Disposition: Home, Self-Care Condition on Discharge: Good Instructions: DI for COVID-19 (Suspected or Confirmed ), Coronavirus Disease 2019, Preventing the Spread of Coronavirus Discharge Instructions, DI for Viral Syndrome Additional Instructions: *Monitor Temp, Over the counter Motrin or Tylenol as directed/as needed Tylenol every 4 hours and Motrin every 6 hours (as long as your family doctor has told you that you can take it) for fever or pain. and straight to ER if unable to lower temp less than 101.0 after medication given *Warm salt water gargles may help to soothe the throat *Throat Lozenges *Warm fluids like tea with honey may help to soothe the throat *Sleep elevated *Humidifier/Vaporizer Follow up IMMEDIATELY for new or worsening symptoms or no Noticeable improvement over the next 48-72 hours. 911 for difficulty breathing or swallowing You were tested for today for COVID19 your test result should be back in the next 24-48 hours, you may call to the [facility] to see if your test results are back in the next 48 hours [phone] [facility] hours are 9am-9pm You was given a handout with instructions for Self Quarantine and Self isolation for while you wait on test results and what to do if they are positive If you are positive the Health Dept will be contacting you also Referrals: Hamilton Katz MD [Primary Care Provider] - As needed Forms: Work/School Release Time of Disposition: 10:51 Medical Decision Making - Brad Inquiry Pt receiving controlled substance: No Brad was queried for this patient: No Vital Signs: 07/16/20 10:25 Temperature 97.4 F L Temperature Source Oral Pulse Rate [Right Brachial] 75 Respiratory Rate 17 Blood Pressure [Right Arm] 148/86 H Blood Pressure Mean [Right Arm] 106 Blood Pressure Source [Right Arm] Automatic Cuff Blood Pressure Position [Right Arm] Sitting 02 Sat by Pulse Oximetry 98 Oxygen Delivery Method Room Air Orders (Tests/Meds): ORDERS Category Date Time Status Covid-19 Nasal PCR ([facility]) Routine Lab 07/16/20 10:11 Ordered [facility] HPI - General Stated complaint: covid test Time Seen by Provider: 07/16/20 10:45 Mode of Arrival: Ambulatory Source of Information: Patient Limitations: No Limitations Description of Symptoms (Recalled from Triage Doc. by RN): COVID TEST D/T EXPOSURE. C/O FEVER, HEADACHE, BODY ACHES AND DIARRHEA. REPORTS RECEIVING FIRST DOSE OF COVID VACCINE ON 07/03 HEENT Symptoms (Recalled from RN notes): Yes Resp Symptoms (Recalled from RN notes): No Skin Symptoms (Recalled from RN notes): No MS Symptoms (Recalled from RN notes): No Functional Status (Recalled from RN notes): WNL - History of Present Illness Provider Complaint: Patient state that she recently took the COVID vaccine and has since been exposed to partner at work that recently tested positive States that she is having body aches, chills, diarrhea and over all feeling achy all over so she came in to get tested - Related Data Previous Rx's Medication Instructions Recorded Azithromycin [Z-Abner 250mg Tab*] 250 mg PO UD DOSE PK #6 tab 08/25/19 Brompheniramine/Pseudoephed/Dm 5 ml PO Q6HP PRN #240 syrup 08/25/19 [Bromfed Dm Cough Syrup] predniSONE [Deltasone 10mg tablet] 10 mg PO BID 3 Days #6 tab 08/25/19 Allergies Allergy/AdvReac Type Severity Reaction Status Date / Time sulfamethoxazole Allergy Mild NAUSEA/HEAD Verified 02/10/18 09:09 [From ] [facility] trimethoprim [From ] Allergy Mild NAUSEA/HEAD Verified 02/10/18 09:09 [facility]HE - Worker's Comp Is this a Worker's Comp case?: No [facility] History - Hepatitis A Screen Drug use history?: No High risk sexual behaviors?: No History of sexually transmitted infection?: No Currently employed?: No Childcare worker?: No Do you have indoor plumbing?: Yes Do you have electricity?: Yes Attestation statement
[2020-07-16 11:03] VITALS: BP 148/86; PULSE 75; RESP 17; TEMP 36.3; O2SAT 98
== END 2020-07-16 11:05 | disposition home or self-care (01) ==
PROVIDERS: Emergency Provider Nurse Practitioner; PCP Family Medicine
DX: Z20.822 Contact with and (suspected) exposure to COVID-19 (principal)
CPT/HCPCS: 99202; G0463; U0003

== ENCOUNTER → 2020-08-09 14:54 | Outpatient (CLI) | payer OTHER, SELFPAY ==
--- NOTE | 2020-08-09 | US_ITS ---
PROCEDURE: US THYROID CLINICAL INDICATION: hypothyroid, enlarged and heterogeneous with nodules COMPARISON: No exams were available for comparison FINDINGS: Right lobe: 0.9cm x 5.9cm x 1.9cm Left lobe: 1.9cm x 5.4cm x 2.0cm There is diffuse enlargement of the thyroid gland on both sides with a multi nodular contour. No discrete mass or nodule is demonstrated satisfactorily in both planes. The isthmus is enlarged measuring 14 mm in AP dimension. IMPRESSION: Goiter with enlarged thyroid gland with a lobular contour Dictated by: Leonid Blair MD 08/10/2020 14:09 Leonid Blair MD in [place] 08/10/2020 14:09
--- NOTE | 2020-08-09 | US_ITS ---
PROCEDURE: US SOFT TISSUE HEAD AND NECK CLINICAL INDICATION: Palpable abnormality in the right neck COMPARISON: No exams were available for comparison FINDINGS: Hypoechoic nodule is present right above right clavicle corresponding to the palpable abnormality measuring 1.1 x 0.5 cm and may represent a lymph node. This does not represent a cyst. IMPRESSION: Palpable abnormality above the right clavicle may represent a small lymph node Dictated by: Leonid Blair MD 08/10/2020 14:10 Leonid Blair MD in [place] 08/10/2020 14:10
== END ==
LOC: RAD 14:54
PROVIDERS: PCP Family Medicine; Visit Provider Nurse Practitioner Family
DX: E03.9 Hypothyroidism, unspecified (principal); R22.0 Localized swelling, mass and lump, head
CPT/HCPCS: 76536

== ENCOUNTER 2021-12-20 15:59 | Emergency (ER) | payer OTHER, SELFPAY ==
[2021-12-20 16:20] VITALS: BP 137/70; PULSE 89; RESP 19; TEMP 36.8; O2SAT 98; BMI 37.5
[2021-12-20 16:37] VITALS: BP 137/70; PULSE 89; RESP 19; TEMP 36.8; O2SAT 98
--- NOTE | 2021-12-20 17:07 | HMH.EDUTC ---
[facility] [place] Clinical Impression: [place] eye disease of right eye Maxillary sinusitis, acute Qualifiers: Recurrence: non-recurrent Qualified Code(s): J01.00 - Acute maxillary sinusitis, unspecified Disposition: Home, Self-Care Condition on Discharge: Good Instructions: DI for Sinusitis, DI for Conjunctivitis Additional Instructions: Start antibiotic patient to take as ordered for a full length of time even if you feel better. Sinus infections do not get better overnight. It may take 2-3 days to notice much improvement so be sure to use conservative measures as discussed for symptoms. Flonase 1 spray each nostril daily to help with nasal congestion, sinus and ear pressure/information Increase fluids Humidifier/vaporizer as needed Tylenol and ibuprofen as needed for fever or pain. If symptoms do not improve or get worse return or be seen in the ER Follow-up with primary care this week Prescriptions: cephALEXin [Cephalexin 500mg Tab] 500 mg PO BID 7 Days #14 tab [facility] Erythromycin Base [Erythromycin 1gm opth ointment] 1 applic OP BID 7 Days #1 gm [facility]: [facility] Fluticasone Propionate [Flonase 50mcg nasal spray 16gm] 1 spr NS DAILY 7 Days #9.9 ml Transmission Status: Pending to [facility] Referrals: Provider,Referral, [Primary Care Provider] - Time of Disposition: 17:13 Medical Decision Making - Brad Inquiry Pt receiving controlled substance: No Vital Signs: 12/20/21 16:20 12/20/21 16:37 Temperature 98.3 F 98.3 F Temperature Source Oral Pulse Rate 89 Pulse Rate [Right Brachial] 89 Respiratory Rate 19 19 Blood Pressure 137/70 Blood Pressure [Right Arm] 137/70 Blood Pressure Mean [Right Arm] 92 Blood Pressure Source [Right Arm] Automatic Cuff Blood Pressure Position [Right Arm] Sitting 02 Sat by Pulse Oximetry 98 Oxygen Delivery Method Room Air [facility] [place] - General Chief complaint: [facility] Stated complaint: congeston and runny nose Time Seen by Provider: 12/20/21 17:07 Mode of Arrival: Ambulatory Source of Information: Patient Limitations: No Limitations Description of Symptoms (Recalled from Triage Doc. by RN): PATIENT C/O POSSIBLE SINUS INFECTION X 2 WEEKS AND REDNESS TO RIGHT EYE SINCE THIS MORNING HEENT Symptoms (Recalled from RN notes): Yes Resp Symptoms (Recalled from RN notes): No Skin Symptoms (Recalled from RN notes): No MS Symptoms (Recalled from RN notes): No Functional Status (Recalled from RN notes): WNL - History of Present Illness Provider Complaint: 41 yr old female presents for green sinus drainage,sinus congestion,sinus pressure and red eye with drainage. - Related Data Home Medications Medication Instructions Recorded Confirmed Levothyroxine Sodium [Euthyrox] 75 mcg PO DAILY 12/20/21 12/20/21 Previous Rx's Medication Instructions Recorded Erythromycin Base [Erythromycin 1 applic OP BID 7 Days #1 gm 12/20/21 1gm opth ointment] Fluticasone Propionate [Flonase 1 spr NS DAILY 7 Days #9.9 ml 12/20/21 50mcg nasal spray 16gm] cephALEXin [Cephalexin 500mg Tab] 500 mg PO BID 7 Days #14 tab 12/20/21 Allergies Allergy/AdvReac Type Severity Reaction Status Date / Time sulfamethoxazole Allergy Mild NAUSEA/HEAD Verified 02/10/18 09:09 [From ] [facility] trimethoprim [From [facility]RA] Allergy Mild NAUSEA/HEAD Verified 02/10/18 09:09 ACHE - Worker's Comp Is this a Worker's Comp case?: No [facility] History - Hepatitis A Screen Attestation statement:: This patient has been screened for Hepatitis A risk factors. I have reviewed the patient's past medical history: Yes Medical History: Denies:: Anxiety, Asthma, Depression, Diabetes Mellitus Type 1, Diabetes Mellitus Type 2, Seizures Other Surgeries: Yes: Appendectomy. No: Amputation: No Fractures: No - Social History Smoking Status: Never smoker Alcohol Intake: ne
== END 2021-12-20 17:10 | disposition home or self-care (01) ==
PROVIDERS: Emergency Provider Nurse Practitioner Family
DX: J01.00 Acute maxillary sinusitis, unspecified (principal); H10.9 Unspecified conjunctivitis
CPT/HCPCS: 99213; G0463

== ENCOUNTER 2022-02-15 16:34 | Emergency (ER) | payer OTHER, SELFPAY ==
[2022-02-15 16:35] VITALS: BP 150/94; PULSE 79; RESP 18; TEMP 37.1; O2SAT 98; BMI 40.7
[2022-02-15 16:53] VITALS: BP 150/94; PULSE 74; RESP 20; O2SAT 96
[2022-02-15 17:01] VITALS: BP 126/93; PULSE 72; RESP 18; O2SAT 98
--- NOTE | 2022-02-15 17:01 | CT_ITS ---
PROCEDURE INFORMATION: Exam: CT Abdomen And Pelvis Without Contrast Exam date and time: 02/15/2022 5:17 PM Age: 41 years old Clinical indication: Abdominal pain; Flank; Left; Additional info: L flank pain, dysuria TECHNIQUE: Imaging protocol: Computed tomography of the abdomen and pelvis without contrast. Radiation optimization: All CT scans at this facility use at least one of these dose optimization techniques: automated exposure control; mA and/or kV adjustment per patient size (includes targeted exams where dose is matched to clinical indication); or iterative reconstruction. [facility] 11/21/2017 7:39 AM FINDINGS: Lungs: Tiny punctate calcified granulomas within the right lung base and spleen. Diaphragm: Small sliding hiatal hernia. Liver: Normal. No mass. Gallbladder and bile ducts: Gallbladder is surgically absent. No pathologic dilation of the biliary tree. Pancreas: Normal. No ductal dilation. Spleen: Tiny calcified granulomas. No splenomegaly. Adrenal glands: Normal. No mass. Kidneys and ureters: There is no evidence for renal or ureteral calculus disease, hydronephrosis or hydroureter. Stomach and bowel: Mild to moderate diverticular disease is identified in the distal descending and sigmoid colon. No surrounding inflammation or fluid to suggest acute diverticulitis. Appendix: No evidence of appendicitis. Intraperitoneal space: No evidence of free fluid, free air, or gastrointestinal obstruction. Vasculature: Unremarkable. No abdominal aortic aneurysm. Lymph nodes: No evidence for mesenteric inflammation or lymphadenopathy. Urinary bladder: Unremarkable as visualized. Reproductive: Unremarkable as visualized. Bones/joints: Skeletal structures are negative for evidence of aggressive process or acute fracture. Degenerative spondylosis and facet arthropathy are identified in the spine. Osteophytosis and eburnation of the sacroiliac joints and hips. Soft tissues: Small fat containing umbilical hernia. IMPRESSION: 1. No evidence for renal or ureteral calculus disease, hydronephrosis or hydroureter. 2. Mild to moderate diverticular disease is identified in the distal descending and sigmoid colon. No surrounding inflammation or fluid to suggest acute diverticulitis. 3. No evidence of free fluid, free air, or gastrointestinal obstruction. 4. No evidence for mesenteric inflammation or lymphadenopathy. 5. Gallbladder is surgically absent. No pathologic dilation of the biliary tree. 6. Small sliding hiatal hernia. 7. Tiny punctate calcified granulomas within the right lung base and spleen. 8. Small fat containing umbilical hernia.
[2022-02-15 17:02] LABS: Microscopic, Urine URINE MICROSCOPIC (MICROSCOPIC)
--- NOTE | 2022-02-15 17:04 | HMH.EDGENADL ---
ED Disposition Clinical Impression: UTI (urinary tract infection) Disposition: Home, Self-Care Condition on Discharge: Good Additional Instructions: At this time it was felt you are safe to be discharged home. If new or worsening symptoms please do not hesitate to return the emergency department. Please take your medications as prescribed. Please follow-up with your family doctor if symptoms persist early next week. Prescriptions: Cefdinir [Omnicef 300mg Capsule] 300 mg PO BID #20 cap Transmission Status: Pending to [facility] Referrals: Dee Dietrich APRN [Primary Care Provider] - - Critical Care Critical Care Time: No Attestation: On 02/15/22, the high probability of a clinically significant, sudden or life threatening deterioration of the following system(s) required my full and direct attention, intervention and personal management. The time I documented below is in addition to time spent performing reported procedures but includes the following listed in this critical care notation. Medical Decision Making - Brad Inquiry Pt receiving controlled substance: No Vital Signs: 02/15/22 16:35 Temperature 98.7 F Temperature Source Oral Pulse Rate [Right Radial] 79 Respiratory Rate 18 Blood Pressure [Right Arm] 150/94 H Blood Pressure Mean [Right Arm] 112 Blood Pressure Source [Right Arm] Automatic Cuff Blood Pressure Position [Right Arm] Sitting 02 Sat by Pulse Oximetry 98 Oxygen Delivery Method Room Air - Lab Data Lab Results 02/15/22 16:44: Urine Color Yellow, Urine Appearance Clear, Urine pH 7.0, Ur Specific [place] 1.020, Urine Protein Negative, Urine Glucose (UA) Negative, Urine Ketones Negative, Urine Blood 2+, Urine Nitrate Negative, Urine Bilirubin Negative, Urine Urobilinogen 0.2, Ur Leukocyte Esterase 2+ A, Urine RBC 3-5, Urine WBC 10-20, Ur Squamous Epith Cells 3-5, Urine Bacteria 1+ 02/15/22 17:08: WBC 9.3, RBC 4.31, Hgb 12.8, Hct 38.9, MCV 90.4, MCH 29.7, MCHC 32.9, RDW 14.1, Plt Count 254, MPV 9.9, Neut % (Auto) 72.5, Lymph % (Auto) 21.4, [place] % (Auto) 3.8, Eos % (Auto) 1.5, Baso % (Auto) 0.7, Neut # (Auto) 6.7, Lymph # (Auto) 2.0, [place] # (Auto) 0.4, Eos # (Auto) 0.1, Baso # (Auto) 0.1 02/15/22 17:08: Sodium 138, Potassium 3.8, Chloride 108 H, Carbon Dioxide 28, Anion Gap 5.8, BUN 16, Creatinine 0.80, Estimated Creat Clear 155, Estimated GFR 80, Est GFR ( Amer) 97, Glucose 105 H, Calcium 9.1, Total Bilirubin < 0.1 L, AST 30, ALT 25, Alkaline Phosphatase 74, Total Protein 7.0, Albumin 3.8, Globulin 3.2, Albumin/Globulin Ratio 1.2 02/15/22 17:08: Urine HCG, Qual Negative 02/15/22 17:08: Lipase 95 Result diagrams: 02/15/22 17:08 02/15/22 17:08 Orders (Tests/Meds): ED MEDICATIONS Generic Name Dose Route Start Last Admin Trade Name Freq PRN Reason Stop Dose Admin Lactated Ringer's 1,000 mls @ 999 mls/hr 02/15/22 17:15 02/15/22 17:15 Lactated Ringer's 1000 Ml Bag IV 02/15/22 18:15 999 mls/hr .Q1H1M CARLOS Administration Sodium Chloride 10 ml 02/15/22 16:59 Sodium Chloride 0.9% 10ml Flush Syringe IV 03/17/22 16:58 NEEDED PRN Maintain IV Site Discontinued Medications Generic Name Dose Route Start Last Admin Trade Name Freq PRN Reason Stop Dose Admin Acetaminophen 500 mg 02/15/22 17:03 02/15/22 17:15 Acetaminophen 500mg Tab PO 02/15/22 17:04 500 mg ONCE ONE Administration Ketorolac Tromethamine 15 mg 02/15/22 17:03 02/15/22 17:15 Ketorolac 30mg/Ml Vial IV 02/15/22 17:04 15 mg ONCE ONE Administration Ondansetron HCl 4 mg 02/15/22 17:03 02/15/22 17:15 Ondansetron 4mg/2ml Vial IV 02/15/22 17:04 4 mg ONCE ONE Administration ORDERS Category Date Time Status Urine Culture Stat Micro 02/15/22 16:44 Received Medical Decision Narrative: In summary this is a previously healthy 41-year-old female who presents emergency department for evaluation of left flank pain. Patient is hemodynamically st
[2022-02-15 17:08] LABS: Appearance,Urine CLEAR (Clear); Bilirubin,Urine Negative (Negative); Blood, Urine 2+ (Negative); Color,Urine YELLOW (Yellow); Glucose,Urine (UA) Negative (Negative); Ketones,Urine Negative (Negative); Leukocyte Esterase,Urine 2+ (Negative); Nitrate,Urine Negative (Negative); Protein,Urine Negative (Negative); Urobilinogen,Urine 0.2 EU/dl (0.2)
[2022-02-15 17:18] LABS: Urine Pregnancy, HCG Qual. Negative (Negative)
[2022-02-15 17:20] LABS: Basophils # 0.1 K/mm3 (0-0.2); Basophils % 0.7 % (0.1-2.0); Eosinophils # 0.1 K/mm3 (0.0-0.4); Eosinophils % 1.5 % (0.1-12.0); Hematocrit 38.9 % (37.0-47.0); Hemoglobin 12.8 g/dL (12.2-16.2); Lymphocytes % 21.4 % (10-50); Mean Corpuscular HGB Conc 32.9 g/dL (31.8-35.4); Mean Corpuscular Hemoglobin 29.7 pg (27.0-31.2); Mean Corpuscular Volume 90.4 fl (81-99); Mean Platelet Volume 9.9 fl (7.4-10.4); Monocytes # 0.4 K/mm3 (0.1-1.0); Monocytes % 3.8 % (1.7-9.3); Neutrophils # 6.7 K/mm3 (1.8-7.8); Neutrophils % 72.5 % (37.0-80.0); Platelet Count 254 K/mm3 (142-424); Red Blood Count 4.31 M/mm3 (4.20-5.40); Red Cell Distribution Width 14.1 % (11.5-17.5); White Blood Count 9.3 K/mm3 (4.8-10.8)
--- NOTE | 2022-02-15 17:20 | PC.NURSE ---
pt to ct at this time
[2022-02-15 17:23] LABS: Alanine Aminotransferase 25 U/L (12-78); Albumin Level 3.8 g/dl (3.5-5.0); Albumin/Globulin Ratio 1.2 (1.1-1.8); Alkaline Phosphatase 74 U/L (38-126); Anion Gap 5.8 mEq/L (5-15); Aspartate Amino Transferase 30 U/L (14-36); Blood Urea Nitrogen 16 mg/dl (7-17); Calcium 9.1 mg/dl (8.4-10.2); Carbon Dioxide 28 mmol/L (22.0-30.0); Chloride 108 mmol/L (98-107); Creatinine Clearance Estimated 155 mL/min (50-200); Estimated Glomerular Filt Rate 80 ml/min (>60); GFR (African American) 97 ML/MIN (>60); Globulin 3.2 g/dL (1.3-3.2); Glucose 105 mg/dl (74-100); Lipase 95 U/L (23-300); Potassium 3.8 mmoL/L (3.5-5.1); Sodium 138 mmol/L (136-145)
[2022-02-15 17:25] LABS: Bilirubin,Total < 0.1 mg/dl (0.2-1.3)
--- NOTE | 2022-02-15 17:28 | PC.NURSE ---
pt back from ct
[2022-02-15 17:34] LABS: Bacteria,Urine 1+ /lpf
--- NOTE | 2022-02-15 17:39 | PC.NURSE ---
pt updated on POC
[2022-02-15 18:31] VITALS: BP 121/90; PULSE 70; RESP 17; TEMP 37; O2SAT 98
== END 2022-02-15 18:33 | disposition home or self-care (01) ==
PROVIDERS: Emergency Provider Emergency Medicine; PCP Nurse Practitioner Family
DX: N39.0 Urinary tract infection, site not specified (principal); M54.9 Dorsalgia, unspecified; K57.30 Diverticulosis of large intestine without perforation or abscess without bleeding; R11.0 Nausea; K44.9 Diaphragmatic hernia without obstruction or gangrene; K42.9 Umbilical hernia without obstruction or gangrene; Z79.51 Long term (current) use of inhaled steroids; Z79.899 Other long term (current) drug therapy; Z88.2 Allergy status to sulfonamides; Z88.8 Allergy status to other drugs, medicaments and biological substances
CPT/HCPCS: 74176; 80053; 81001; 81025; 83690; 85025; 87086; 87088; 87186; 96361; 96374; 96375; 99285; J2405

== ENCOUNTER → 2022-07-10 14:14 | Outpatient (CLI) | payer BC, SELFPAY ==
--- NOTE | 2022-07-10 14:20 | US_ITS ---
FINAL REPORT CLINICAL HISTORY: THYROID GOITER COMPARISON: August 09, 2020 FINDINGS: THYROID ULTRASOUND Sonographic images of the thyroid was obtained. The right lobe of the thyroid measures 5.7 x 2.2 x 1.4 cm. The left lobe of the thyroid measures 5.1 x 2.1 x 1.5 cm. The isthmus measures 14 mm. There is thyromegaly with heterogeneous parenchyma and nodularity. No dominant mass is identified. There are soft tissue nodules posterior to the thyroid gland bilaterally. The soft tissue mass posterior on the right measures 14 x 16 by 10 mm and was 13 x 10 x 8 mm. The soft tissue mass posterior on the left measures 13 x 14 x 7 mm and was 12 x 10 x 7 mm. IMPRESSION: Multinodular goiter similar from prior exam without evidence of thyroid neoplasm. Posterior external thyroid nodules have increased in size from the prior exam. This could represent adenopathy or parathyroid adenomas. Nodules are not readily amenable to imaging guided biopsy. TI-RADS category 3, recommendation is continued 12 month follow-up of extrathyroidal nodules, no further follow-up of the thyroid needed. Reviewed, Interpreted and Dictated by Amber Hill MD Transcribed by Alee Garcia Authenticated and [facility]
== END ==
LOC: RAD 14:14
PROVIDERS: PCP Nurse Practitioner Family; Visit Provider Nurse Practitioner Family
DX: E04.9 Nontoxic goiter, unspecified (principal)
CPT/HCPCS: 76536

== ENCOUNTER 2023-01-03 08:09 | Emergency (ER) | payer OTHER, SELFPAY ==
[2023-01-03 08:10] VITALS: BP 134/85; PULSE 63; RESP 18; TEMP 36.8; O2SAT 99; BMI 44.2
--- NOTE | 2023-01-03 08:27 | EXP.UTC ---
Discharge Plan Disposition Patient Disposition: Home, Self-Care Condition: Good Prescriptions Prescriptions: New ciprofloxacin HCl [Cipro] 500 mg tablet 500 mg PO BID Qty: 10 0RF phenazopyridine [Pyridium] 200 mg tablet 200 mg PO Q8H PRN (Reason: pain) Qty: 6 0RF No Action levothyroxine 75 MCG tablet 75 mcg PO DAILY Patient Comments: TAKE 1 TABLET BY MOUTH ONCE DAILY (NEEDS APPOINTMENT FOR ADDITIONAL REFILLS) cephalexin 500 MG tablet 500 mg PO BID 7 Days Qty: 14 0RF fluticasone propionate 120 SPR/BOT bottle 1 spr NS DAILY 7 Days Qty: 9.9 0RF erythromycin 1 GM ointment 1 applic OP BID 7 Days Qty: 1 0RF Rx Instructions: apply small ribbon to rt eye cefdinir 300 MG capsule 300 mg PO BID Qty: 20 0RF Referrals Follow up/Referrals: Dee Dietrich APRN [Primary Care Provider] - See instructions Activity Restrictions/Add. Instructions Additional Instructions/Restrictions: Take all antibiotics as directed until gone Drink plenty of fluids Urine culture should be available in 48-72 hours Return if fever, pain, vomiting, etc Clinical Impressions Clinical Impression: Acute cystitis Instructions Patient Instructions: DI for Urinary Tract Infection (UTI) Discharge ED Provider: Josephine Altamirano [facility] General Stated complaint: Possible UTI Mode of Arrival: Ambulatory Source of Information: Patient Limitations: No Limitations Time Seen by Provider: 01/03/23 08:27 Description of Symptoms (Recalled from Triage Doc. by RN): Patient reports possible UTI. Complaint of odor, pressure and headache for 2 weeks. HEENT Symptoms (Recalled from RN notes): No Resp Symptoms (Recalled from RN notes): No Skin Symptoms (Recalled from RN notes): No MS Symptoms (Recalled from RN notes): No Functional Status (Recalled from RN notes): wnl History of Present Illness Provider Complaint: Urinary frequency, pressure, odor X 1 week. Nausea but no vomiting. Headache. Fatigue. No fever. No discharge or itching. Onset (ago): week(s) (1) Location: genitals Associated symptoms: nausea/vomiting Treatments prior to arrival: none Related Data Home Medications Medication Instructions Recorded Confirmed levothyroxine 75 mcg tablet 75 mcg PO DAILY THYROID 12/20/21 12/20/21 Previous Rx's Medication Instructions Recorded cephalexin 500 mg tablet 500 mg PO BID 7 days #14 tabs 12/20/21 erythromycin 5 mg/gram (0.5 %) eye 1 applic ophthalmic (eye) BID 7 12/20/21 ointment days ##1 fluticasone propionate 50 1 spr intranasal DAILY 7 days #9.9 12/20/21 mcg/actuation nasal mL spray,suspension cefdinir 300 mg capsule 300 mg PO BID #20 caps 02/15/22 ciprofloxacin HCl 500 mg tablet 500 mg PO BID #10 tabs 01/03/23 (Cipro) phenazopyridine 200 mg tablet 200 mg PO Q8H PRN pain 6 doses #6 01/03/23 (Pyridium) tabs Allergies Allergy/AdvReac Type Severity Reaction Status Date / Time sulfamethoxazole Allergy Mild NAUSEA/HEAD Verified 08/21/22 09:29 [From ] ACHE trimethoprim [From ] Allergy Mild NAUSEA/HEAD Verified 08/21/22 09:29 ACHE Worker's Comp Is this a Worker's Comp case?: No [facility] Disclaimer: The information contained in this section may have been updated after the patient was seen, as this information can be updated by other users. 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
[2023-01-03 08:30] LABS: Apearance,Urine Cloudy (Clear); Bilirubin,Urine Negative (Negative); Blood, Urine Negative (Negative); Color,Urine Dark Yellow (Yellow); Glucose,Urine (UA) Negative (Negative); Ketones,Urine Negative (Negative); Protein,Urine Negative (Negative); UTC Leukocyte Esterase,Urine Trace (Negative); UTC Nitrate,Urine Negative (Negative); Urobilinogen,Urine 0.2 EU/dl (0.2)
[2023-01-03 08:45] VITALS: BP 134/85; PULSE 63; RESP 18; TEMP 36.8; O2SAT 99
== END 2023-01-03 08:46 | disposition home or self-care (01) ==
PROVIDERS: Emergency Provider Physician Assistant; PCP Nurse Practitioner Family
DX: N30.00 Acute cystitis without hematuria (principal); R82.79 Other abnormal findings on microbiological examination of urine; R11.0 Nausea
CPT/HCPCS: 81003; 87086; 99212; 99214; G0463

== ENCOUNTER 2023-05-11 08:00 | Emergency (ER) | payer BC, SELFPAY ==
[2023-05-11 08:05] VITALS: BP 136/82; PULSE 77; RESP 18; TEMP 36.8; O2SAT 97; BMI 39.8
--- NOTE | 2023-05-11 08:17 | EXP.UTC ---
Discharge Plan Disposition Patient Disposition: Home, Self-Care Condition: Good Prescriptions Prescriptions: New benzonatate [benzonatate] 100 mg capsule 100 mg PO TIDP PRN (Reason: Cough) Qty: 30 0RF methylprednisolone 4 mg Tablets,Dose Pack 4 mg PO DIRECTED Qty: 21 0RF amoxicillin-pot clavulanate 875-125 mg Tablet 1 tab PO Q12H Qty: 20 0RF No Action levothyroxine 75 MCG tablet 75 mcg PO DAILY Patient Comments: TAKE 1 TABLET BY MOUTH ONCE DAILY (NEEDS APPOINTMENT FOR ADDITIONAL REFILLS) Referrals Follow up/Referrals: Dee Dietrich APRN [Primary Care Provider] - See instructions Activity Restrictions/Add. Instructions Additional Instructions/Restrictions: Drink plenty of fluids. Take tylenol or ibuprofen for pain or fever. Take the medications as directed. Follow up with your regular doctor. GO TO THE ER FOR ANY WORSENING SYMPTOMS Clinical Impressions Clinical Impression: Sinusitis Stand Alone Forms Stand Alone Forms: Work/School Release Instructions Patient Instructions: Sinusitis, DI for Sinusitis Discharge ED Provider: Dharmesh Chau [facility] General Stated complaint: nausea congestion,cough,headache Time Seen by Provider: 05/11/23 08:17 History of Present Illness Provider Complaint: She states that for the past 5 days she has had worsening sinus congestion, scratchy throat, bilateral ear pain and malaise. She denies any fever/chills/body aches. Related Data Home Medications Medication Instructions Recorded Confirmed levothyroxine 75 mcg tablet 75 mcg PO DAILY THYROID 12/20/21 05/11/23 Previous Rx's Medication Instructions Recorded amoxicillin 875 mg-potassium 1 tab PO Q12H #20 tabs 05/11/23 clavulanate 125 mg tablet benzonatate 100 mg capsule 100 mg PO TIDP PRN Cough #30 caps 05/11/23 methylprednisolone 4 mg tablets in 4 mg PO DIRECTED #21 tabs 05/11/23 a dose pack Allergies Allergy/AdvReac Type Severity Reaction Status Date / Time sulfamethoxazole Allergy Mild NAUSEA/HEAD Verified 05/11/23 08:18 [From ] ACHE trimethoprim [From ] Allergy Mild NAUSEA/HEAD Verified 05/11/23 08:18 ACHE [facility] Disclaimer: The information contained in this section may have been updated after the patient was seen, as this information can be updated by other users. 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/hazards: No ROS Obtained: Yes All systems reviewed & no additional complaints except as documented Constitutional Constitutional: Reports poor appetite Eyes Eyes: Reports system reviewed and no additional complaints, except as documented ENT Ears, Nose, Mouth, and Throat: Reports as per HPI Cardiovascular Cardiovascular: Reports system reviewed and no additional complaints, except as documented and Denies chest pain Respiratory Respiratory: Denies shortness of breath, Denies chest congestion, Reports cough, Denies stridor and Denies wheezing Gastrointestinal Gastrointestingal: Reports system reviewed and no additional complaints, except as documented; Denies abdominal pain, diarrhea or vomiting Musculoskeletal Musculoskeletal: Reports system reviewed and no additional complaints, except as documented and Denies arthralgias Integumentary/Breasts Skin/Breast: Reports system reviewed and no additional complaints, except as documented and Denies rash Neurologic Neurologic: Denies paresthesias Allergic/Immunologic Allergic/Immunologic: Denies wheezing Physical Exam General General appearance: alert and in no apparent distress Eye Eye exam: Present normal appearance, PERRL and EOMI ENT ENT exam: P
[2023-05-11 09:03] VITALS: BP 136/82; PULSE 77; RESP 18; TEMP 36.8; O2SAT 97
== END 2023-05-11 09:03 | disposition home or self-care (01) ==
PROVIDERS: Emergency Provider Nurse Practitioner Family; PCP Nurse Practitioner Family
DX: J01.90 Acute sinusitis, unspecified (principal); H92.03 Otalgia, bilateral; R53.81 Other malaise
CPT/HCPCS: 96372; 99212; 99214; G0463

== ENCOUNTER 2023-05-25 11:11 | Emergency (ER) | payer BC, SELFPAY ==
[2023-05-25 11:40] VITALS: BP 142/94; PULSE 76; RESP 18; TEMP 36.9; O2SAT 98; BMI 40.5
--- NOTE | 2023-05-25 12:00 | EXP.UTC ---
Discharge Plan Disposition Patient Disposition: Home, Self-Care Condition: Good Prescriptions Prescriptions: New azithromycin [Zithromax] 250 mg tablet 250 mg PO UD DOSE PK Qty: 6 0RF Rx Instructions: Take two (2) tablets today, then one (1) tablet days #2 thru #5 guaifenesin [Mucinex] 600 mg tablet extended release 12hr 600 - 1,200 mg PO BIDP PRN (Reason: Congestion) Qty: 30 0RF prednisone 10 mg tablet 10 mg PO DIRECTED 9 Days Qty: 21 0RF Rx Instructions: Take 4 tablets daily for 3 days, then take 2 tablets daily for 3 days, then take 1 tablet daily for 3 days, then stop. No Action levothyroxine 75 MCG tablet 88 mcg PO DAILY Patient Comments: TAKE 1 TABLET BY MOUTH ONCE DAILY (NEEDS APPOINTMENT FOR ADDITIONAL REFILLS) Referrals Follow up/Referrals: Dee Dietrich APRN [Primary Care Provider] - See instructions Activity Restrictions/Add. Instructions Additional Instructions/Restrictions: Drink plenty of fluids. Take tylenol or ibuprofen for pain or fever. Take the medications as directed. Follow up with your regular doctor. GO TO THE ER FOR ANY WORSENING SYMPTOMS Clinical Impressions Clinical Impression: Acute bronchitis Stand Alone Forms Stand Alone Forms: Work/School Release Instructions Patient Instructions: Acute Bronchitis, DI for Acute Bronchitis Discharge ED Provider: Dharmesh Chau [facility] General Stated complaint: chest congestion, wheezing Time Seen by Provider: 05/25/23 12:00 History of Present Illness Provider Complaint: She states that since her last visit here she has not got better. She has continued to have chest congestion and a cough. Related Data Home Medications Medication Instructions Recorded Confirmed levothyroxine 75 mcg tablet 88 mcg PO DAILY THYROID 12/20/21 05/25/23 Previous Rx's Medication Instructions Recorded azithromycin 250 mg tablet 250 mg PO UD DOSE PK #6 tabs 05/25/23 (Zithromax) guaifenesin 600 mg tablet, 600 - 1,200 mg PO BIDP PRN 05/25/23 extended release 12 hr (Mucinex) Congestion #30 tabs prednisone 10 mg tablet 10 mg PO DIRECTED 9 days #21 05/25/23 tabs Allergies Allergy/AdvReac Type Severity Reaction Status Date / Time sulfamethoxazole Allergy Mild NAUSEA/HEAD Verified 05/25/23 12:15 [From ] ACHE trimethoprim [From ] Allergy Mild NAUSEA/HEAD Verified 05/25/23 12:15 ACHE PFSH PFSH Disclaimer: The information contained in this section may have been updated after the patient was seen, as this information can be updated by other users. 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/hazards: No ROS Obtained: Yes All systems reviewed & no additional complaints except as documented Constitutional Constitutional: Denies fever(s) and Reports poor appetite Eyes Eyes: Reports system reviewed and no additional complaints, except as documented ENT Ears, Nose, Mouth, and Throat: Reports as per HPI Cardiovascular Cardiovascular: Reports system reviewed and no additional complaints, except as documented and Denies chest pain Respiratory Respiratory: Denies shortness of breath, Denies chest congestion, Reports cough, Denies stridor and Denies wheezing Gastrointestinal Gastrointestingal: Reports system reviewed and no additional complaints, except as documented; Denies abdominal pain, diarrhea or vomiting Musculoskeletal Musculoskeletal: Reports system reviewed and no additional complaints, except as documented and Denies arthralgias Integumentary/Breasts Skin/Breast: Reports system reviewed and no additional complaints, except as documented and Denies r
[2023-05-25 12:32] VITALS: BP 142/94; PULSE 76; RESP 18; TEMP 36.9; O2SAT 98
== END 2023-05-25 12:32 | disposition home or self-care (01) ==
PROVIDERS: Emergency Provider Nurse Practitioner Family; PCP Nurse Practitioner Family
DX: J20.9 Acute bronchitis, unspecified (principal); R09.89 Other specified symptoms and signs involving the circulatory and respiratory systems; R06.2 Wheezing; R05.9 Cough, unspecified
CPT/HCPCS: 99212; 99214; G0463

== ENCOUNTER 2023-10-14 16:21 | Outpatient (CLI) | payer BC, SELFPAY ==
--- NOTE | 2023-10-14 16:22 | MM_ITS ---
PROCEDURE INFORMATION: Exam: MG Bilateral Screening 3D Mammography Exam date and time: 10/14/2023 4:19 PM Age: 43 years old Clinical indication: Baseline screening mammogram TECHNIQUE: Imaging protocol: Bilateral Screening tomosynthesis and 2D mammography including computer-aided detection (CAD) when performed. COMPARISON: No relevant prior studies available. FINDINGS: MAMMOGRAPHY: Breast composition: There are scattered areas of fibroglandular density. Mass: None. Architectural distortion: No new or suspicious architectural distortion. Calcifications: No new or suspicious calcifications are present Asymmetric density: No new or suspicious asymmetric density is present Skin thickening: None. Axillary adenopathy: None. IMPRESSION: No mammographic evidence of malignancy. Recommend annual screening mammography unless otherwise clinically indicated. ASSESSMENT: BI-RADS category 1: Negative.
== END 2023-10-14 23:59 ==
LOC: RAD 16:22
PROVIDERS: PCP Family Medicine; Visit Provider Nurse Practitioner Obstetrics & Gynecology
DX: Z12.31 Encounter for screening mammogram for malignant neoplasm of breast (principal)
CPT/HCPCS: 77063; 77067

== ENCOUNTER 2024-10-27 07:17 | Outpatient (CLI) | payer BC, SELFPAY ==
--- NOTE | 2024-10-27 07:22 | US_ITS ---
FINAL REPORT TECHNIQUE: Sonographic images of the abdomen were obtained in all four quadrants. CLINICAL HISTORY: LUMP // raised area on mid abd x a couple months COMPARISON: None FINDINGS: LIVER: Homogeneous. The portal vein is patent with normal directional flow. No focal hepatic lesion or intrahepatic biliary dilatation. GALLBLADDER: Gallbladder is surgically absent. The common duct measures 3 mm. This is within normal limits for age. PANCREAS: Unremarkable. RIGHT KIDNEY: 10.4 cm. No hydronephrosis, mass or stone. LEFT KIDNEY: 10.9 cm. No hydronephrosis, mass or stone. SPLEEN: 11.6 cm. No focal splenic lesion. AORTA/IVC: No abdominal aortic aneurysm. Visualized IVC within normal limits. OTHER: No ascites. Additional images of the anterior abdominal wall at the area of interest reveal no mass, fluid collection, or hernia. IMPRESSION: Unremarkable ultrasound of the abdomen. Reviewed, Interpreted and Dictated by Justine Chapman MD Transcribed by Danae Calzada Authenticated and [facility]
== END 2024-10-27 23:59 | disposition home or self-care (01) ==
LOC: RAD 07:17
PROVIDERS: PCP Nurse Practitioner; Visit Provider Nurse Practitioner
DX: R22.9 Localized swelling, mass and lump, unspecified (principal)
CPT/HCPCS: 76700

== ENCOUNTER 2025-01-17 15:55 | Outpatient (CLI) | payer BC, SELFPAY ==
--- OUTSIDE RECORDS SUMMARY | 2025-01-17 15:57 | XMS_ITS | Clinical Summary ---
Author Organization Healthcare Address [address] [place] [address] Care Team Providers Care Stock Mixer Name Role Phone Unavailable Primary Care Provider Unavailabl e Social History Tobacco Use Types Packs/Day Years Used Date Smoking Tobacco: Never Assessed Comments Unknown Sex and Gender Information Value Date Recorded Sex Assigned at Not on file Legal Sex Female 6:53 PM EDT Gender Identity Not on file Sexual Orientation Not on file Plan of Treatment Not on file
--- NOTE | 2025-01-17 16:00 | MM_ITS ---
PROCEDURE INFORMATION: Exam: MG Bilateral Screening 3D Mammography Exam date and time: 01/17/2025 4:04 PM Age: 44 years old Clinical indication: Screening examination. TECHNIQUE: Imaging protocol: Bilateral Screening tomosynthesis and 2D mammography including computer-aided detection (CAD) when performed. COMPARISON: MG MM DIG SCREENING MAMM BI W/CAD 10/14/2023 4:19 PM FINDINGS: MAMMOGRAPHY: Breast composition: There are scattered areas of fibroglandular density. Mass: None. Architectural distortion: None. Calcifications: No suspicious calcifications. Asymmetric density: None. Skin thickening: None. Axillary adenopathy: None. IMPRESSION: No mammographic evidence of malignancy. Annual screening is recommended unless otherwise clinically indicated. ASSESSMENT: BI-RADS Category 1: Negative.
== END 2025-01-17 23:59 | disposition home or self-care (01) ==
LOC: RAD 15:56
PROVIDERS: PCP Family Medicine; Visit Provider Nurse Practitioner Obstetrics & Gynecology
DX: Z12.31 Encounter for screening mammogram for malignant neoplasm of breast (principal); R92.323 Mammographic fibroglandular density, bilateral breasts
CPT/HCPCS: 77063; 77067

== ENCOUNTER 2025-02-03 10:52 | Outpatient (CLI) | payer BC, SELFPAY ==
--- OUTSIDE RECORDS SUMMARY | 2025-02-03 10:55 | XMS_ITS | Clinical Summary ---
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
--- OUTSIDE RECORDS SUMMARY | 2025-02-03 10:55 | XMS_ITS | Clinical Summary ---
Author Organization [facility] Address [address] [place] [address] Care Team Providers Care Sole Ruffer Name Role Phone Provider, No Known Primary Care Provider [phone] Allergies Active Allergy Reactions Criticality Noted Date Comments Sulfamethoxazole-Trimethoprim Nausea And Vomiting 02/15/2016 Medications levothyroxine (Euthyrox) 75 MCG tablet Take 1 tablet by mouth Daily. Appointment needed for additional refills 90 tablet 2 Active Active Problems Problem Noted Date Diagnosed Date Simple goiter 10/23/2020 Assessment & Plan (10/23/2020 8:42 AM EDT): Rather substantial goiter . 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 Will check tsh and adjust as indicated by results Resolved Problems Problem Noted Date Diagnosed Date Resolved Date Maternal morbid obesity, antepartum 02/15/2016 10/23/2020 Gestational diabetes mellitu s in third trimester 02/15/2016 10/23/2020 Family History Medical History Relation Name Comments Heart disease Father Hypertension Father Cancer Maternal Aunt Cancer Maternal Grandfather Diabetes Maternal Grandfather Heart disease Maternal Grandfather Cancer Maternal Grandmother Heart attack Maternal Grandmother Diabetes Mother Hypertension Mother Cancer Paternal Uncle Relation Name Status Comments Father Alive Maternal Aunt Maternal Grandfather Maternal Grandmother Mother Alive Paternal Uncle Social History Tobacco Use Types Packs/Day Years Used Date Smoking Tobacco: Never Smokeless Tobacco: Never Alcohol Use Standard Drinks/Week Comments No 0 (1 standard drink = 0.6 oz pur e alcohol) Abuse Screen Answer Date Recorded Unsafe at Home or Work/School Not on file Feels Threatened by Someone? Not on file 05/2023 Does Anyone Keep You from Co ntacting Others or Doint Things Outside the Home? Not on file 04/16/2023 Physical Sign of Abuse Present Not on file 1 Housing Stability Answer Date Recorded Current Living Arrangements Not on file 04/06 Potentially Unsafe Housing Conditions Not on gamaliel e 04/16/2023 Family and Community Support Answer Jarad e Recorded Help with Day-to-Day Activities Not on file 04/16/2023 Lonely or Isolated Not on file 04/16/2023 Employment Answer Date Recorded Do you want help finding or keeping work or a suri b? Not on file 04/16/2023 Disabilities Answer Date Recorded Concentrating, Remembering, or Making Decisions Difficulty Not on file 04/16/2023 Doing Errands Independently Difficulty Not on fi le 04/16/2023 Education Answer Date Recorded Help with school or training? Not on file Preferred Language Not on file 04/16/2023 Comments No Sex and Gender Information Value Date Recorded Sex Assigned at Not on file Legal Sex Female 11:04 AM EDT Gender Identity Not on file Sexual Orientation Not on file Last Filed Vital Signs Vital Sign Reading Time Taken Comments Blood Pressure 124/80 10/23/2020 8:17 AM EDT Pulse - - Temperature 36.3 C (97.3 F) 10/23/2020 8:17 AM EDT Respiratory Rate - - Oxygen Saturation - - Inhaled Oxygen Concentration - - Weight 109 kg (241 lb 6.4 oz) 10/23/2020 8:17 AM EDT Height 160 cm (5' 3 ) 10/23/2020 8:17 AM EDT Body Mass Index 42.76 10/23/2020 8:17 AM EDT Plan of Treatment Health Maintenance Due Date Last Done Comments Annual Gynecologic Pelvic an d Breast Exam 1980 ANNUAL PHYSICAL 10/17/2020 HEPATITIS C SCREENING 10/17/2020 MAMMOGRAM 2022 COVID-19 Vaccine (2 - 2023-2 5 season) 2024 08/02/2020 INFLUENZA VACCINE 04/06/2025 TDAP/TD VACCINES (2 - Td or Tdap) 03/14/2026 016 Pneumococcal Vaccine 0-49 Aged Out No longer eligible based on patient's age to complete this topic Insurance [facility] [employer] Care Teams Sole Ruffer Relationship Specialty Start Date End Date Provider, [place] [address] PCP - General 02/14/16
[2025-02-03 11:30] LABS: Hematocrit 41.3 % (37.0-47.0); Hemoglobin 14.0 g/dL (12.2-16.2); Immature Granulocytes % 0.3 %; Mean Corpuscular HGB Conc 33.9 g/dL (31.8-35.4); Mean Corpuscular Hemoglobin 30.6 pg (27.0-31.2); Mean Corpuscular Volume 90.4 fl (81-99); Nucleated Red Blood Cells % 0 %; Platelet Count 192 K/mm3 (142-424); Red Blood Count 4.57 M/mm3 (4.20-5.40); Red Cell Distribution Width-SD 42.4 fL; White Blood Count 6.7 K/mm3 (4.8-10.8)
[2025-02-03 12:05] LABS: Cholesterol 225 mg/dl (140-200); HDL Cholesterol 38 mg/dl (40-60); Triglycerides 159 mg/dl (30-150)
[2025-02-03 12:07] LABS: Alanine Aminotransferase 24 U/L (12-78); Albumin Level 3.9 g/dl (3.5-5.0); Albumin/Globulin Ratio 1.5 (1.1-1.8); Alkaline Phosphatase 63 U/L (38-126); Anion Gap 9.1 mEq/L (5-15); Aspartate Amino Transferase 31 U/L (14-36); Bilirubin,Total 0.5 mg/dl (0.2-1.3); Blood Urea Nitrogen 13 mg/dl (7-17); Calcium 9.3 mg/dl (8.4-10.2); Carbon Dioxide 24 mmol/L (22.0-30.0); Chloride 109 mmol/L (98-107); Creatinine,Serum 0.70 mg/dl (0.52-1.04); Estimated Glomerular Filt Rate 92 ml/min (>60); GFR (African American) 111 ML/MIN (>60); Globulin 2.6 g/dL (1.3-3.2); Glucose 89 mg/dl (74-100); Phosphorous 3.4 mg/dl (2.5-4.5); Potassium 4.1 mmoL/L (3.5-5.1); Sodium 138 mmol/L (136-145); Total Protein,Serum 6.5 g/dl (6.3-8.2)
[2025-02-03 12:24] LABS: 25-OH Vitamin D, Total 25.1 ng/mL (30-100); Free T4 (Free Thyroxine) 1.32 ng/dl (0.78-2.19)
[2025-02-03 12:35] LABS: Thyroid Stimulating Hormone 2.97 uIU/mL (0.465-4.68)
[2025-02-03 12:52] LABS: Hemoglobin A1C 5.1 % (4.0-6.0)
[2025-02-04 18:28] LABS: Calcium, Ionized 4.9 mg/dL (4.5-5.6)
== END 2025-02-03 23:59 | disposition home or self-care (01) ==
LOC: LAB 10:54
PROVIDERS: Nurse Practitioner Obstetrics & Gynecology; PCP Family Medicine; Visit Provider Student in an Organized Health Care Education/Training Program
DX: E04.9 Nontoxic goiter, unspecified (principal); E06.3 Autoimmune thyroiditis; Z00.00 Encounter for general adult medical examination without abnormal findings; E21.5 Disorder of parathyroid gland, unspecified; R73.03 Prediabetes; E66.9 Obesity, unspecified
CPT/HCPCS: 36415; 80053; 80061; 82306; 82330; 83036; 83970; 84100; 84439; 84443; 85025; 86376

== ENCOUNTER 2025-02-22 15:30 | Outpatient (CLI) | payer BC, SELFPAY ==
--- NOTE | 2025-02-22 15:32 | US_ITS ---
FINAL REPORT TECHNIQUE: Real-time grayscale and color ultrasound of the thyroid was performed. CLINICAL HISTORY: GOITER COMPARISON: 07/10/2022 FINDINGS: The thyroid gland measures 58 x 23 x 23 mm on the right and 60 x 21 x 24 mm on the left. The isthmus measures 14 mm. Enlarged heterogeneous thyroid gland with increased vascularity. Nodules: 6 mm hypoechoic nodule periphery of the right lobe of the thyroid, TR 3. There is a 2nd 4 mm hypoechoic TR 3 nodule in the medial right lobe of the thyroid. IMPRESSION: Diffuse goiter with TR 3 lesions. No follow-up required per TI-RADS criteria. Reviewed, Interpreted and Dictated by Jas Ramírez MD Transcribed by Jaclyn Bhatia Authenticated and . [facility]
--- OUTSIDE RECORDS SUMMARY | 2025-02-22 15:32 | XMS_ITS | Clinical Summary ---
Author Organization Healthcare Address [address] [place] [address] Care Team Providers Care Account Planner Name Role Phone Unavailable Primary Care Provider [...]
== END 2025-02-22 23:59 | disposition home or self-care (01) ==
LOC: RAD 15:30
PROVIDERS: PCP Family Medicine; Visit Provider Nurse Practitioner
DX: E04.2 Nontoxic multinodular goiter (principal)
CPT/HCPCS: 76536

== ENCOUNTER 2025-04-15 15:00 | Outpatient (CLI) | payer BC, SELFPAY ==
--- NOTE | 2025-04-15 15:00 | US_ITS ---
PROCEDURE: US TRANSVAGINAL CLINICAL INDICATION: needs during cycle day 10-14 COMPARISON: CT CT ABDOMEN PELVIS WO CON from 02/15/2022 US US ABDOMEN COMPLETE from 10/27/2024 FINDINGS: Transvaginal and transabdominal sonographic images of the pelvis were obtained. UTERUS: 9.0cm x 5.2cmx 4.7 cm retroflexed with a combined endometrial thickness of 10.5mm. A scar is seen. LEFT OVARY: 2.8 cm x1.7 cmx1.5cm with a volume of 3.9ml. The left ovary is seen transabdominally. There is a follicle measuring 1.2 cm x 0.9 cm x 1.2 cm. RIGHT OVARY: 3.0cmx 3.3cmx2.2cm with a volume of 11.7ml. There is a follicle in the right ovary measuring 2.2 cm x 1.5 cm x 1.3 cm. Both ovaries are seen and appear normal. Doppler flow to both ovaries are seen. There is no fluid in the cul-de-sac. IMPRESSION: 1. Retroflexed, slightly enlarged uterus. The endometrium appears normal. 2. Both ovaries are seen and appear normal. The left ovary could only be seen transabdominally. Both ovaries have a follicle. 3. No fluid in the cul-de-sac. Dictated by: Sterling Ackerman MD 04/15/2025 17:49 Sterlign Ackerman MD in OV 04/15/2025 17:49
== END 2025-04-15 23:59 | disposition home or self-care (01) ==
LOC: RAD 15:01
PROVIDERS: PCP Nurse Practitioner; Visit Provider Obstetrics & Gynecology
DX: N85.4 Malposition of uterus (principal); N83.02 Follicular cyst of left ovary; N83.01 Follicular cyst of right ovary; N85.2 Hypertrophy of uterus
CPT/HCPCS: 76830